=== PATIENT | male | born 1960 | race Caucasian/White ===

== ENCOUNTER → 2016-06-08 | Day surgery (SDC) | payer OTHER ==
[~2016-06-08] VITALS: Ht 157.5 cm; Wt 72.6 kg
[~2016-06-08] MED LIST: LEXAPRO20 M1 PO
--- NOTE | 2016-06-09 17:59 | Operative Report ---
Operative/Inv Procedure Report Surgery Date: 06/08/16 Name of Procedure: Permanent implant of Spinal column / Cord stimulating electrodes ( Octrodes - Avista, MRI conditional x2) and Internal Pulse Generator (Precision- Montage) of [place] [employer] system, under fluorosocpic guidance. 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 Complex regional Pain syndrome/ Autonomic Dysreflexia Post-Operative Diagnosis: Same Estimated Blood Loss: less than 50ml Surgeon/Switchman: JUDY KELLER MD Asst: None Anesthesia: moderate sedation Monitors: per anesthesia IV Fluids: per anesthesia Implants: [place] [employer] SCS system - MRI conditional Urine Output: per anesthesia Drains: none Specimens: none Microbiology: none Tourniquet: N/A Complications: none Condition: Stable Operative Indication: Chronc pain both lower extremities L>R, Hx of CVA in the past Operative/Procedure Note Note: All the risks and benefits of the procedure were discussed with the pt including but not limited to injury to spinal nerves, spinal membrane and even spinal cord, infection , bleeding around spine, etc. The pt understood and consented for the procedure . The pt was given 2 gm of Kefzol IV prior to the procedure. The pt was placed prone with pillows under the abdomen to decrease the lumbar curve. All the pressure points were well padded. The surgical site thoraco lumbar spine area and left gluteal area, that was previously marked for the skin incision for IPG implant, was prepped and draped sterile. AP and lateral fluoroscopy was used for the placement and advancement of percutaneous epidural electrodes. Combination of 2 % lidocaine and 0.5% Bupivacaine with Epi was used for local infiltration and the total amount used was documented in Nurse charts. Fluoroscopy showed evidence of narrow interlaminar space at L2/3/4 spaces and obliterated L1/2 space. Via left para spinal approach, at a shallow angle L2/3 interlaminar space was accessed without CSF / Heme and 8 point contact MRI conditional Avista , 56 inch Percutaneous electrode of [place] [employer] system was advanced cephalad to lie at T11 vertebral level , to the left side of the mid line / spinous process. Using analogous technique, another 8 point contact percutaneous electrode was advanced via L2/3 inter laminar space, cephalad , to lie to the right paramedian place at the same level. Stimulation / programming of the both electrodes produced paresthesias covering left and right lower extremity. The pt was happy with the paresthesias At this point the pt was taken to deeper levels of anesthesia. Vertical incision was given connecting two Tuohy needles and the incision was deepened to the lumbar para spinal muscle area. When the rep. from the BS stimulated / programmed the epidural contacts, the pt reported feeling left leg paraesthesias and also right leg as well. When the pt expressed his satisfaction, decision was taken to internalize the electrodes and the pt was given more sedation , by the Anesthesiology team. The two electrodes were anchored to lumbar paraspinal fascia with 2-O silk using MRI compatible anchors. Small tough on the electrodes did not make changes in the epidural position of the electrodes. At this point attention was drawn to the left gluteal area Transverse skin incision was give for about 5 cm , over the previously marked skin, superior and inferior subcutaneous flaps were raised with blunt and sharp dissection and hemostasis was secured. The tunnel George was passed from the left guteal wound in to the lumbar wound and the electrodes were delivered in to the gluteal wound. Both electrodes were connected to the MRI conditional IPG The precision Montage and Impedance was checked to be WNL. Torque was applied to tighten the electrodes to the IPG and excess of the electrode loop was placed between the IPG, with factory parag seen through the wound , and the gluteal muscles. The hemostasis was secured in the lumbar and gluteal wounds, and irrigated with Normal saline and bacitracin solution. Both wounds were sutured in layers and skin with stapler. The pt tolerated the procedure well, remained stable hemodynamically and neurologically intact. The IPG was interrogated and the pt was sent home with few programs. The pt was discharged with post op instructions and to follow me at the office. Findings: Evidence of DDD of Lumbar spine Discharge Disposition: Same Day Admissions Additional Comments: None CC: JENN CURRY MD
--- NOTE | 2016-06-11 08:58 | RADIOLOGY REPORT ---
EXAMINATION: XR LUMBOSACRAL SPINE CLINICAL INFORMATION: Spinal cord stimulator implant. COMPARISON: None TECHNIQUE: 3 fluoroscopic intraoperative images of the lumbar spine. Total fluoroscopic time 8.1 minutes. FINDINGS: The submitted images demonstrate a generator pack overlying the iliac bone. Wiring extends proximally, likely to the level of T10. IMPRESSION: Fluoroscopic guidance for spinal stimulator placement.
== END ==
LOC: STS 03:06
DX: G90.523 Complex regional pain syndrome I of lower limb, bilateral (principal); G90.4 Autonomic dysreflexia; M62.81 Muscle weakness (generalized); Z86.73 Personal history of transient ischemic attack (TIA), and cerebral infarction without residual deficits; I10 Essential (primary) hypertension
CPT/HCPCS: 72100; C1778; C1820; J0690; J2001; J2250